=== PATIENT | male | born 1940 | race Caucasian/White ===

== ENCOUNTER 2021-04-15 13:02 | Outpatient (CLI) | payer MEDICARE, BC ==
[2021-04-15 20:56] LABS: SARS-CoV-2 PCR by NAA Not Detected (NotDetected)
== END 2021-04-15 13:03 | disposition home or self-care (01) ==
LOC: CSHLAB 13:02
PROVIDERS: ATTEND Internal Medicine Gastroenterology
DX: Z20.822 Contact with and (suspected) exposure to COVID-19 (principal); Z86.010 Personal history of colon polyps; K59.09 Other constipation
CPT/HCPCS: 87635; U0003; U0005

== ENCOUNTER 2022-07-28 11:45 | Emergency (ER) | payer MEDICARE, BC | END 2022-07-28 15:08 | disposition home or self-care (01) | LOC: CSHERS 11:45 | DX: L03.116 Cellulitis of left lower limb (principal); I10 Essential (primary) hypertension; E78.00 Pure hypercholesterolemia, unspecified; I25.2 Old myocardial infarction; Z86.73 Personal history of transient ischemic attack (TIA), and cerebral infarction without residual deficits; I25.10 Atherosclerotic heart disease of native coronary artery without angina pectoris; Z86.718 Personal history of other venous thrombosis and embolism ==

== ENCOUNTER 2025-09-25 13:15 | Outpatient (CLI) | payer MEDICARE ==
[2025-09-25] MEDS ORDERED: Sodium Bicarbonate 2.5 MEQ/5 ML SDV ONE (13:43)
[2025-09-25 13:59] VITALS: BP 116/67; TEMP 97.8
[2025-09-25 14:08] LABS: INR-International Normal Ratio 1.2; Prothrombin Time 13.0 sec (9.5-12.1)
== END 2025-09-25 14:55 | disposition home or self-care (01) ==
LOC: CSHCCL 13:15
PROVIDERS: ATTEND Specialist
DX: J90 Pleural effusion, not elsewhere classified (principal); R06.02 Shortness of breath
CPT/HCPCS: 32555; 71045; 85610

== ENCOUNTER 2025-10-14 12:41 | Outpatient (CLI) | payer MEDICARE | END 2025-10-14 12:42 | disposition home or self-care (01) | LOC: CSHRAD 12:41 | PROVIDERS: ATTEND Family Medicine | DX: J90 Pleural effusion, not elsewhere classified (principal); R91.8 Other nonspecific abnormal finding of lung field | CPT/HCPCS: 71046 ==

== ENCOUNTER 2025-11-06 10:31 | Outpatient (CLI) | payer MEDICARE ==
[2025-11-06] MEDS ORDERED: Sodium Bicarbonate 2.5 MEQ/5 ML SDV ONE (10:37)
[2025-11-06 11:04] VITALS: BP 127/67; TEMP 98.2
[2025-11-06 11:38] LABS: INR-International Normal Ratio 1.3; Prothrombin Time 14.0 sec (9.5-12.1)
== END 2025-11-06 13:17 | disposition home or self-care (01) ==
LOC: CSHCCL 10:31
PROVIDERS: ATTEND Specialist
DX: J90 Pleural effusion, not elsewhere classified (principal); R06.02 Shortness of breath
CPT/HCPCS: 32555; 71045; 85610

== ENCOUNTER 2025-11-06 15:07 | Inpatient (IN) | payer MEDICARE ==
[2025-11-06 15:48] LABS: #Basophils 0.14 10x3/uL (0.0-0.2); #Eosinophils 0.23 10x3/uL (0.0-0.5); #Monocytes 1.24 10x3/uL (0.0-1.1); #Neutrophils 11.25 10x3/uL (1.5-8.4); %Basophils 0.9 % (0.0-2.0); %Eosinophils 1.5 % (0.0-6.0); %Lymphocytes 13.0 % (18.0-47.0); %Monocytes 8.3 % (0.0-10.0); %Neutrophils 75.4 % (40.0-75.0); Hematocrit 29.4 % (38.8-50.0); Hemoglobin 9.6 g/dL (13.5-17.5); Mean Corpuscular Hemoglobin 31.5 pg (27.0-33.0); Mean Corpuscular Volume 96.4 fL (81.2-95.1); Platelet Count 259 10x3/uL (150-450); Red Blood Cell (RBC) Count 3.05 10x6/uL (4.32-5.72); White Blood Cell (WBC) Count 14.93 10x3/uL (3.5-10.5)
[2025-11-06 16:07] LABS: ALT (SGPT) 24 U/L (Less than 45); AST (SGOT) 26 U/L (11-34); Albumin 3.4 g/dL (3.1-4.5); Alkaline Phosphatase 66 U/L (40-110); Anion Gap 16 mmol/L (10-20); BUN (Urea Nitrogen) 20 mg/dL (8.4-25.7); Bilirubin, Total 1.1 mg/dL (0.3-1.2); Calc. Creatinine Clearance 0 mL/min (70-130); Calcium 8.1 mg/dL (7.8-10.44); Carbon Dioxide 24 mmol/L (23-31); Chloride 107 mmol/L (98-107); Globulin 2.1 g/dL (2.4-3.5); Glucose 180 mg/dL (83-110); Potassium 4.7 mmol/L (3.5-5.1); Sodium 142 mmol/L (136-145)
[2025-11-06 16:13] LABS: Troponin I 0.033 ng/mL (< 0.028)
[2025-11-06 17:00] LABS: Glucose, Urine (Dipstick) >=1000 mg/dL (Negative); Leukocyte Negative (Negative); Protein, Urine (Dipstick) Negative (Neg-Trace); Specific Gravity, Urine 1.005 (1.005-1.030)
[2025-11-06 17:16] LABS: RBC/HPF None Seen HPF (0-3)
[2025-11-06 17:17] LABS: Bacteria/HPF 1+ HPF (None Seen); CAUTI Indications for Culture Alt mental st,lethar; WBC/HPF None Seen HPF (0-3)
[2025-11-06 17:19] LABS: Mucous/LPF Rare LPF (<2+)
[2025-11-06 17:20] LABS: Urine Culture Reflex No No
[2025-11-06] MEDS ORDERED: Dextrose 50% Abboject 50 ML SYRINGE SLOW IVP PRN (18:32)
[2025-11-06] MEDS ORDERED: Glucagon 1 MG/ML KIT IM PRN (18:32)
[2025-11-06] MEDS ORDERED: Ondansetron PF 4 MG/2 ML Vial IVP PRN (18:34)
[2025-11-06] MEDS ORDERED: Senokot S 8.6-50 MG TAB PO PRN (18:34)
[2025-11-06] MEDS ORDERED: Acetaminophen 325 MG TAB PO PRN (18:34)
[2025-11-06] MEDS ORDERED: Calcium Carbonate 500 MG ChewTAB PO PRN (18:34)
[2025-11-06 19:56] LABS: Troponin I 0.017 ng/mL (< 0.028)
[2025-11-07 06:32] LABS: #Basophils 0.08 10x3/uL (0.0-0.2); #Eosinophils 0.08 10x3/uL (0.0-0.5); #Monocytes 1.48 10x3/uL (0.0-1.1); #Neutrophils 7.16 10x3/uL (1.5-8.4); %Basophils 0.8 % (0.0-2.0); %Eosinophils 0.8 % (0.0-6.0); %Lymphocytes 16.6 % (18.0-47.0); %Monocytes 13.9 % (0.0-10.0); %Neutrophils 67.1 % (40.0-75.0); Hematocrit 26.6 % (38.8-50.0); Hemoglobin 8.5 g/dL (13.5-17.5); Mean Corpuscular Hemoglobin 30.9 pg (27.0-33.0); Mean Corpuscular Volume 96.7 fL (81.2-95.1); Platelet Count 227 10x3/uL (150-450); Red Blood Cell (RBC) Count 2.75 10x6/uL (4.32-5.72); White Blood Cell (WBC) Count 10.66 10x3/uL (3.5-10.5)
[2025-11-07 06:45] LABS: Anion Gap 13 mmol/L (10-20); BUN (Urea Nitrogen) 22 mg/dL (8.4-25.7); Calc. Creatinine Clearance 0 mL/min (70-130); Calcium 8.4 mg/dL (7.8-10.44); Carbon Dioxide 27 mmol/L (23-31); Chloride 104 mmol/L (98-107); Glucose 165 mg/dL (83-110); Potassium 3.9 mmol/L (3.5-5.1); Sodium 140 mmol/L (136-145)
[2025-11-07 06:53] LABS: Troponin I 0.040 ng/mL (< 0.028)
[2025-11-07] MEDS ORDERED: Aspirin 81 mg Enteric Coated Tablet ONE (08:11)
[2025-11-07] MEDS: Aspirin 81 mg Enteric Coated Tablet PO SCH (08:21)
[2025-11-07 09:14] VITALS: BP 130/65; TEMP 98
== END 2025-11-07 14:05 | disposition home or self-care (01) | DRG 315 ==
LOC: CSHERS 15:07 → CSHERHOLD 17:16
PROVIDERS: ADMIT Internal Medicine; ATTEND Hospitalist
DX: I95.9 Hypotension, unspecified (principal); I13.0 Hypertensive heart and chronic kidney disease with heart failure and stage 1 through stage 4 chronic kidney disease, or unspecified chronic kidney disease; I50.22 Chronic systolic (congestive) heart failure; I25.10 Atherosclerotic heart disease of native coronary artery without angina pectoris; E78.5 Hyperlipidemia, unspecified; I48.91 Unspecified atrial fibrillation; N18.9 Chronic kidney disease, unspecified; Z95.1 Presence of aortocoronary bypass graft; Z88.8 Allergy status to other drugs, medicaments and biological substances; Z79.899 Other long term (current) drug therapy; Z79.01 Long term (current) use of anticoagulants; Z98.890 Other specified postprocedural states; Z86.73 Personal history of transient ischemic attack (TIA), and cerebral infarction without residual deficits; E11.22 Type 2 diabetes mellitus with diabetic chronic kidney disease; Z79.82 Long term (current) use of aspirin; Z79.890 Hormone replacement therapy
CPT/HCPCS: 32555; 36415; 36416; 71045; 80048; 80053; 81001; 83605; 83880; 84484; 85025; 85610; 86850; 86900; 86901; 87040; 87428; 93005; 94760